=== PATIENT | female | born 1990 | race Caucasian/White ===

== ENCOUNTER 2021-05-11 16:13 | Emergency (ER) | payer SELFPAY ==
[2021-05-11 17:12] LABS: CORONAVIRUS COVID-19 NAA NEGATIVE (NEGATIVE)
--- NOTE | 2021-05-11 17:25 | EDM.PDOC ---
ED HPI GENERAL MEDICAL PROBLEM - General Chief Complaint: Respiratory Problem Stated Complaint: COUGH, FEVER, SHAKY Time Seen by Provider: 05/11/21 17:10 Source of Information: Reports: Patient, Family History Limitations: Reports: No Limitations - History of Present Illness INITIAL COMMENTS - FREE TEXT/NARRATIVE: 30-year-old female presents with a cough, malaise, nausea and generalized body aches for the past 5 days. She was seen in the [place] emergency room last night but they just checked her for Covid and sent her home, she does not feel like she got worked up and taken seriously. She feels moderately short of breath, she is unvaccinated. She is a smoker. Intermittent fevers and chills. Onset: Gradual Duration: Day(s): (Symptoms for 5 days) Worsens with: Reports: Other (Activity causes increased fatigue and shortness of breath) Associated Symptoms: Reports: Chest Pain, Cough, Fever/Chills, Malaise, Shortness of Breath, Weakness. Denies: Headaches, Loss of Appetite, Nausea/Vomiting - Related Data Allergies Allergy/AdvReac Type Severity Reaction Status Date / Time No Known Allergies Allergy Verified 05/11/21 16:37 Home Meds: Home Meds Ascorbic Acid [Vitamin C] 05/11/21 [History] Escitalopram Oxalate [Lexapro] 05/11/21 [History] cloNIDine [Catapres] 0.2 mg PO DAILY 05/11/21 [History] Past Medical History Respiratory History: Reports: Bronchitis, Recurrent Social & Family History - Tobacco Use Tobacco Use Status *Q: Current Every Day Tobacco User Years of Tobacco use: 13 Packs/Tins Daily: 1 - Recreational Drug Use Recreational Drug Use: Yes Recreational Drug Type: Reports: Marijuana/Hashish ED ROS GENERAL - Review of Systems Review Of Systems: See Below Constitutional: Denies: Fever, Chills HEENT: Reports: Rhinitis, Other (Some hoarseness of her voice over the past 2 or 3 days.). Denies: Throat Pain Respiratory: Reports: Shortness of Breath, Cough. Denies: Sputum Cardiovascular: Reports: Chest Pain (With cough) GI/Abdominal: Reports: No Symptoms : Reports: Other (Urine is dark, no dysuria) Musculoskeletal: Reports: Muscle Pain (Generalized muscle aches and pains) Skin: Reports: No Symptoms Neurological: Reports: Headache (Mild headache, weakness) Psychiatric: Reports: No Symptoms ED EXAM, GENERAL - Physical Exam Exam: See Below Exam Limited By: No Limitations General Appearance: Alert, No Apparent Distress, Other (Patient looks tired but not distressed) Eye Exam: Bilateral Eye: Normal Inspection Head: Atraumatic Neck: Non-Tender Respiratory/Chest: No Respiratory Distress, Lungs Clear Cardiovascular: Regular Rate, Rhythm GI/Abdominal: Soft, Tender (She does react with some mild to moderate tenderness to palpation of the abdomen diffusely, no focal guarding or rebound tenderness) Extremities: Normal Inspection Neurological: Alert, Oriented Psychiatric: Anxious Skin Exam: Warm, Dry Course - Vital Signs Last Recorded V/S: Last Vital Signs Temp 98.2 F 05/11/21 16:35 Pulse 80 05/11/21 16:35 Resp 18 05/11/21 16:35 BP 158/59 H 05/11/21 16:35 Pulse Ox 97 05/11/21 16:35 - Orders/Labs/Meds Orders: Active Orders 24 hr Category Date Time Status Isolation [COMM] Stat Oth 05/11/21 16:30 Ordered Isolation [COMM] Stat Ot 05/11/21 17:18 Ordered Labs: Laboratory Tests 05/11/21 05/11/21 05/11/21 Range/Units 16:52 17:25 17:26 WBC 14.2 H (4.5-11.0) K/uL RBC 4.21 (3.30-5.50) M/uL Hgb 13.1 (12.0-15.0) g/dL Hct 38.6 (36.0-48.0) % MCV 92 (80-98) fL MCH 31 (27-31) pg MCHC 34 (32-36) % Plt Count 272 (150-400) K/uL Neut % (Auto) 54.4 (36-66) % Lymph % (Auto) 34.5 (24-44) % [place] % (Auto) 6.3 H (2-6) % Eos % (Auto) 3.5 (2-4) % Baso % (Auto) 0.7 (0-1) % Sodium (140-148) mmol/L Potassium (3.6-5.2) mmol/L Chloride (100-108) mmol/L Carbon Dioxide (21-32) mmol/L Anion Gap (5.0-14.0) mmol/L BUN (7-18) mg/dL Creatinine (0.6-1.0) mg/dL Est Cr Clr Drug Dosing mL/min Estimated GFR (MDRD) (>60) Glucose (74-106) mg/dL Calcium (8.5-10.1) mg/dL Total Bilirubin (0.2-1.0) mg/dL AST (15-37) U/L ALT (12-78) U/L Alkaline Phosphatase (46-116) U/L Total Protein (6.4-8.2) g/dL Albumin (3.4-5.0) g/dL Globulin (2.3-3.5) g/dL Albumin/Globulin Ratio (1.2-2.2) Urine Color Yellow (YELLOW) Urine Appearance Slightly cloudy A (CLEAR) Urine pH 6.0 (5.0-8.0) Ur Specific [place] >= 1.030 (1.008-1.030) Urine Protein Negative (NEGATIVE) mg/dL Urine Glucose (UA) Negative (NEGATIVE) mg/dL Urine Ketones Negative (NEGATIVE) mg/dL Urine Occult Blood Negative (NEGATIVE) Urine Nitrite Negative (NEGATIVE) Urine Bilirubin Negative (NEGATIVE) Urine Urobilinogen 2.0 H (0.2-1.0) EU/dL Ur Leukocyte Esterase Negative (NEGATIVE) Urine RBC 0-5 (0-5) Urine WBC 0-5 (0-5) Ur Epithelial Cells Few Amorphous Sediment Not seen Urine Bacteria Few Urine Mucus Few Influenza Type A RNA Negative (NEGATIVE) RSV RNA (INAAT) Negative (NEGATIVE) Influenza Type B RNA Negative (NEGATIVE) SARS-CoV-2 RNA (ERICA) Negative (NEGATIVE) 05/11/21 Range/Units 17:26 WBC (4.5-11.0) K/uL RBC (3.30-5.50) M/uL Hgb (12.0-15.0) g/dL Hct (36.0-48.0) % MCV (80-98) fL MCH (27-31) pg MCHC (32-36) % Plt Count (150-400) K/uL Neut % (Auto) (36-66) % Lymph % (Auto) (24-44) % [place] % (Auto) (2-6) % Eos % (Auto) (2-4) % Baso % (Auto) (0-1) % Sodium 139 L (140-148) mmol/L Potassium 3.4 L (3.6-5.2) mmol/L Chloride 102 (100-108) mmol/L Carbon Dioxide 30 (21-32) mmol/L Anion Gap 10.4 (5.0-14.0) mmol/L BUN 13 (7-18) mg/dL Creatinine 0.6 (0.6-1.0) mg/dL Est Cr Clr Drug Dosing 116.24 mL/min Estimated GFR (MDRD) > 60 (>60) Glucose 71 L (74-106) mg/dL Calcium 8.6 (8.5-10.1) mg/dL Total Bilirubin 0.4 (0.2-1.0) mg/dL AST 26 (15-37) U/L ALT 29 (12-78) U/L Alkaline Phosphatase 102 (46-116) U/L Total Protein 7.6 (6.4-8.2) g/dL Albumin 3.8 (3.4-5.0) g/dL Globulin 3.8 H (2.3-3.5) g/dL Albumin/Globulin Ratio 1.0 L (1.2-2.2) Urine Color (YELLOW) Urine Appearance (CLEAR) Urine pH (5.0-8.0) Ur Specific [place] (1.008-1.030) Urine Protein (NEGATIVE) mg/dL Urine Glucose (UA) (NEGATIVE) mg/dL Urine Ketones (NEGATIVE) mg/dL Urine Occult Blood (NEGATIVE) Urine Nitrite (NEGATIVE) Urine Bilirubin (NEGATIVE) Urine Urobilinogen (0.2-1.0) EU/dL Ur Leukocyte Esterase (NEGATIVE) Urine RBC (0-5) Urine WBC (0-5) Ur Epithelial Cells Amorphous Sediment Urine Bacteria Urine Mucus Influenza Type A RNA (NEGATIVE) RSV RNA (INAAT) (NEGATIVE) Influenza Type B RNA (NEGATIVE) SARS-CoV-2 RNA (ERICA) (NEGATIVE) - Re-Assessments/Exams Free Text/Narrative Re-Assessment/Exam: 05/11/21 17:55 2 view chest x-ray shows a likely bilateral hilar infiltrates, viral studies are negative. White count is elevated at 14,000, CMP is basically normal, there is no infection in the urine but she is very concentrated. Patient was placed on a Z-Darnell, given Robitussin-DAC and Tessalon Perles for cough suppression and will concentrate on hydration. She can recheck next week if not improving satisfactorily. Departure - Departure Time of Disposition: 18:34 Disposition: Home, Self-Care 01 Clinical Impression: Pneumonia Qualifiers: Pneumonia type: due to unspecified organism Laterality: right Lung location: middle lobe of lung Qualified Code(s): J18.9 - Pneumonia, unspecified organism - Discharge Information Instructions: Community-Acquired Pneumonia, Adult, [id number] Referrals: [facility] [Other] Forms: ED Department Discharge Care Plan Goals: Take Zithromax as prescribed starting with 2 pills tonight, use Robitussin and Tessalon for cough suppression. Concentrate on hydration, and increase activity as tolerated. Consider rechecking in 3 or 4 days if not improving satisfactorily, return anytime if worsening, especially difficulty breathing. Sepsis Event Note (ED) - Evaluation Sepsis Screening Result: No Definite Risk - My Orders Last 24 Hours: My Active Orders 05/11/21 16:30 Isolation [COMM] Stat 05/11/21 17:18 Isolation [COMM] Stat - Assessment/Plan Last 24 Hours: My Active Orders 05/11/21 16:30 Isolation [COMM] Stat 05/11/21 17:18 Isolation [COMM] Stat
--- NOTE | 2021-05-12 09:29 | CR ---
CHEST: 2 view CLINICAL HISTORY:Cough and dyspnea COMPARISON:None FINDINGS: Heart size and pulmonary vascularity are normal. There is diffuse increase in lung markings bilaterally, particularly in the perihilar region. There are no effusions. Impression: Generalized increase in lung markings is most suggestive of pneumonitis
== END 2021-05-11 18:34 | disposition home or self-care (01) ==
LOC: JP.ED 16:13
DX: J18.9 Pneumonia, unspecified organism (principal); Z20.822 Contact with and (suspected) exposure to COVID-19; Z72.0 Tobacco use
CPT/HCPCS: 0241U; 36415; 71046; 80053; 81001; 85025; 99284

== ENCOUNTER 2021-05-15 21:08 | Emergency (ER) | payer SELFPAY ==
[2021-05-15] MEDS ORDERED: Albuterol/Ipratropium 3.0-0.5 MG/3 ML Neb Soln NEB ONE (21:51)
--- NOTE | 2021-05-15 21:54 | EDM.PDOC ---
ED HPI GENERAL MEDICAL PROBLEM - General Chief Complaint: Respiratory Problem Stated Complaint: HEAVINESS IN CHEST Time Seen by Provider: 05/15/21 21:35 Source of Information: Reports: Patient, Old Records, RN History Limitations: Reports: No Limitations - History of Present Illness INITIAL COMMENTS - FREE TEXT/NARRATIVE: 30 yo female smoker presents with mild chest tightness. Was seen about 4-5 days ago here for the same and was given as Z-pack which has not helped. She had a negative viral 4 plex panel on that visit. She thinks she is running low grade fevers in the 99F+ range most days. Has not been seen by her primary in follow up. Gets "bronchitis" often. Onset: Gradual Duration: Day(s):, Getting Worse Location: Reports: Chest Quality: Reports: Other (mild tightness) Severity: Mild Improves with: Reports: None Worsens with: Reports: Other (time) Context: Reports: Other (See HPI) Associated Symptoms: Reports: Chest Pain (mild tightness), Cough, Fever/Chills (? low grade), Other (rhinorrhea) Treatments [employer]: Reports: Other (see below) (none) Generalized Pain Score (Numeric/FACES): 8 - Related Data Allergies Allergy/AdvReac Type Severity Reaction Status Date / Time No Known Allergies Allergy Verified 05/15/21 21:28 Home Meds: Home Meds Ascorbic Acid [Vitamin C] 1 tab PO DAILY 05/11/21 [History] Escitalopram Oxalate [Lexapro] 1 tab PO DAILY 05/11/21 [History] cloNIDine [Catapres] 0.2 mg PO DAILY 05/11/21 [History] Albuterol Sulfate [Albuterol Sulfate Hfa] 2 puff INH Q4H PRN #1 [email or web address] 05/15/21 [Rx] predniSONE [Prednisone] 10 mg PO TID #15 tablet 05/15/21 [Rx] Past Medical History Respiratory History: Reports: Bronchitis, Recurrent Social & Family History - Tobacco Use Tobacco Use Status *Q: Current Every Day Tobacco User Years of Tobacco use: 13 Packs/Tins Daily: 1 - Caffeine Use Caffeine Use: Reports: Soda - Recreational Drug Use Recreational Drug Use: Yes Recreational Drug Type: Reports: Marijuana/Hashish ED ROS GENERAL - Review of Systems Review Of Systems: See Below Constitutional: Reports: Fever (low grade), Chills, Malaise HEENT: Reports: Rhinitis Respiratory: Reports: Cough. Denies: Shortness of Breath, Sputum, Hemoptysis Cardiovascular: Reports: Chest Pain (mild tightness) GI/Abdominal: Reports: No Symptoms : Reports: No Symptoms Musculoskeletal: Reports: No Symptoms Skin: Reports: No Symptoms Neurological: Reports: No Symptoms Psychiatric: Reports: No Symptoms ED EXAM, GENERAL - Physical Exam Exam: See Below Exam Limited By: No Limitations General Appearance: Alert, WD/WN, No Apparent Distress Eye Exam: Bilateral Eye: Normal Inspection Ears: Normal External Exam, Normal Canal, Hearing Grossly Normal, Normal TMs Ear Exam: Bilateral Ear: Auricle Normal, Canal Normal, TM normal Nose: Clear Rhinorrhea Throat/Mouth: Normal Inspection, Normal Lips, Normal Oropharynx, Normal Voice, No Airway Compromise Head: Atraumatic, Normocephalic Neck: Normal Inspection Respiratory/Chest: No Respiratory Distress, Lungs Clear, Normal Breath Sounds, No Accessory Muscle Use. No: Wheezing Cardiovascular: Regular Rate, Rhythm, No Edema Extremities: Normal Inspection Neurological: Alert, Oriented, CN II-XII Intact, Normal Cognition, No Motor/Sensory Deficits Psychiatric: Normal Affect, Normal Mood Skin Exam: Warm, Dry, Intact, Normal Color, No Rash Course - Vital Signs Last Recorded V/S: Last Vital Signs Temp 36.6 C 05/15/21 21:24 Pulse 63 05/15/21 21:24 Resp 17 05/15/21 21:24 BP 148/79 H 05/15/21 21:24 Pulse Ox 95 05/15/21 21:24 - Orders/Labs/Meds Orders: Active Orders 24 hr Category Date Time Status RT Aerosol Therapy [RC] ASDIRECTED Care 05/15/21 21:51 Active Labs: Laboratory Tests 05/15/21 05/15/21 05/15/21 Range/Units 21:47 21:57 21:57 WBC 13.9 H (3.2-11.0) K/uL RBC 4.36 (3.77-5.24) M/uL Hgb 13.5 (11.2-15.5) Hct 39.5 (34.3-46.0) % MCV 90.6 (81.4-99.0) fL MCH 31.0 L (31.6-35.5) pg MCHC 34.2 (31.6-35.5) g/dL Plt Count 315 (130-375) K/uL Sodium 137 L (140-148) mmol/L Potassium 3.9 (3.6-5.2) mmol/L Chloride 102 (100-108) mmol/L Carbon Dioxide 26 (21-32) mmol/L Anion Gap 12.9 (5.0-14.0) mmol/L BUN 8 (7-18) mg/dL Creatinine 0.7 (0.6-1.0) mg/dL Est Cr Clr Drug Dosing 99.63 mL/min Estimated GFR (MDRD) > 60 (>60) Glucose 105 (74-106) mg/dL Calcium 9.1 (8.5-10.1) mg/dL C-Reactive Protein 0.83 H (0.0-0.3) mg/dL Urine Color Yellow (YELLOW) Urine Appearance Clear (CLEAR) Urine pH 6.0 (5.0-8.0) Ur Specific [place] >= 1.030 (1.008-1.030) Urine Protein Negative (NEGATIVE) mg/dL Urine Glucose (UA) Negative (NEGATIVE) mg/dL Urine Ketones Negative (NEGATIVE) mg/dL Urine Occult Blood Negative (NEGATIVE) Urine Nitrite Negative (NEGATIVE) Urine Bilirubin Negative (NEGATIVE) Urine Urobilinogen 1.0 (0.2-1.0) EU/dL Ur Leukocyte Esterase Negative (NEGATIVE) Urine RBC 0-5 (0-5) Urine WBC 0-5 (0-5) Ur Epithelial Cells Few Amorphous Sediment Not seen Urine Bacteria Few Urine Mucus Many Meds: Medications Discontinued Medications Generic Name Dose Route Start Last Admin Trade Name Freq PRN Reason Stop Dose Admin Albuterol/Ipratropium 3 ml 05/15/21 21:51 05/15/21 21:57 Albuterol/Ipratropium 3.0-0.5 Mg/3 Ml Neb Soln NEB 05/15/21 21:52 3 ml ONETIME ONE Administration - Re-Assessments/Exams Free Text/Narrative Re-Assessment/Exam: 05/15/21 21:56 peak flow 300/450 predicted After a Duoneb: peak flow was 350 05/15/21 22:06 Departure - Departure Time of Disposition: 22:30 Disposition: Home, Self-Care 01 Condition: Good Clinical Impression: Bronchospasm - Discharge Information *PRESCRIPTION DRUG MONITORING PROGRAM REVIEWED*: Not Applicable *COPY OF PRESCRIPTION DRUG MONITORING REPORT IN PATIENT [place]: Not Applicable Prescriptions: Albuterol Sulfate [Albuterol Sulfate Hfa] 2 puff INH Q4H PRN #1 [id number].aer.ad PRN Reason: Wheezing predniSONE [Prednisone] 10 mg PO TID #15 tablet Instructions: Steps to Quit Smoking, [id number], Bronchospasm, Adult Referrals: PCP,None [Primary Care Provider] - Forms: ED Department Discharge Additional Instructions: Use the 2 prescriptions sent to your pharmacy as directed. Drink enough water so that your urine is light yellow in color(more than you have been drinking). Work on quitting smoking. F/U with your doctor to make sure you are getting over this current illness. Sepsis Event Note (ED) - Evaluation Sepsis Screening Result: No Definite Risk - Focused Exam Vital Signs: Vital Signs Temp Pulse Resp BP Pulse Ox 05/15/21 21:24 36.6 C 63 17 148/79 H 95 05/15/21 21:19 36.6 C 63 17 148/79 H 63 L - My Orders Last 24 Hours: My Active Orders 05/15/21 21:51 RT Aerosol Therapy [RC] ASDIRECTED - Assessment/Plan Last 24 Hours: My Active Orders 05/15/21 21:51 RT Aerosol Therapy [RC] ASDIRECTED
== END 2021-05-15 22:54 | disposition home or self-care (01) ==
LOC: JP.ED 21:08
DX: J98.01 Acute bronchospasm (principal); Z72.0 Tobacco use
CPT/HCPCS: 36415; 80048; 81001; 85027; 86140; 94640; 99285-25; J7620-GY

== ENCOUNTER 2021-07-20 12:21 | Emergency (ER) | payer SELFPAY ==
[2021-07-20] MEDS ORDERED: Ondansetron 4 MG/2 ML SDV IVPUSH ONE (12:56)
[2021-07-20] MEDS ORDERED: Sodium Chloride 0.9% 10 ML Syringe FLUSH PRN (12:56)
[2021-07-20] MEDS ORDERED: Ketorolac 30 MG/ML SDV IVPUSH ONE (12:57)
[2021-07-20] MEDS ORDERED: HYDROmorphone 0.5 MG/0.5 ML Syringe IVPUSH ONE (13:59)
== END 2021-07-20 15:35 | disposition home or self-care (01) ==
LOC: JP.ED 12:21
DX: N94.6 Dysmenorrhea, unspecified (principal); Z72.0 Tobacco use
CPT/HCPCS: 36415; 76857; 76857-26; 80053; 81001; 85025; 93976; 93976-26; 96374; 96375; 99282; 99284-25; J1170; J1885; J2405

== ENCOUNTER 2021-07-29 23:42 | Emergency (ER) | payer SELFPAY ==
[2021-07-30] MEDS ORDERED: Ketorolac 30 MG/ML SDV IM ONE (01:03)
[2021-07-30] MEDS ORDERED: Ondansetron 4 MG Tab.DIS PO ONE (01:03)
[2021-07-30] MEDS ORDERED: HYDROmorphone 1 MG/ML Syringe IM ONE (02:02)
== END 2021-07-30 02:25 | disposition home or self-care (01) ==
LOC: JP.ED 23:42
DX: J20.9 Acute bronchitis, unspecified (principal); J42 Unspecified chronic bronchitis
CPT/HCPCS: 36415; 71046; 71046-26; 80053; 81001; 85025; 86140; 96372; 99283; 99283-25; J1170; J1885; Q0162

== ENCOUNTER 2021-08-15 22:36 | Emergency (ER) | payer SELFPAY ==
[2021-08-15] MEDS ORDERED: Ketorolac 30 MG/ML SDV IM ONE (23:22)
== END 2021-08-16 00:20 | disposition home or self-care (01) ==
LOC: JP.ED 22:36
DX: R07.89 Other chest pain (principal); Z72.0 Tobacco use
CPT/HCPCS: 71046; 71046-26; 96372; 99283; 99283-25; J1885